=== PATIENT | female | born 1990 | race Caucasian/White ===

== ENCOUNTER 2021-01-17 16:43 | Emergency (ER) | payer OTHER ==
[~2021-01-17] VITALS: Ht 160 cm; Wt 69.0 kg
[~2021-01-17 16:43] MED LIST: ANTIVERT25 MG PO; AZITHROMYCIN 2250 MG PO; CARAFATE 1 GM TA1 G1 PO; CELEXA 20 MG TA20 M1 PO; CELEXA 20 MG TA20 MG PO; CLONAZEPAM 1 MG1 M1 PO; FLAGYL500 MG PO; FLEXERIL PO; HYDROCODON-ACE1 EAC7 PO; IBUPROFEN 400400 M1 PO; IBUPROFEN 800800 M1 PO; LIORESAL 10 MG10 MG PO; MACROBID 100 M100 M2 PO; METROGEL-VAGINA70 GM VG; MINOCYCLINE 5050 M1 PO; MIRENA; NABUMETONE 500500 M1; NORCO 5-325 TA1 EACH PO; NORPRAMIN10 MG PO; NUCYNTA ER50 MG; NUCYNTA50 MG; NUCYNTA75 MG PO; PEPCID AC20 M1 PO; ROBAXIN 750 MG750 M1 PO; TRAZODONE PO; VICODIN 5-5001 EACH PO; VIIBRYD10 MG; WELLBUTRIN XL300 MG PO; XANAX1 MG PO; ZOFRAN ODT4 MG PO
[2021-01-17 17:51] LABS: URINE BILIRUBIN NEGATIVE (Negative); URINE BLOOD NEGATIVE (Negative); URINE CLARITY CLEAR; URINE COLOR YELLOW; URINE GLUCOSE-RANDOM NEGATIVE (Negative); URINE KETONES NEGATIVE (Negative); URINE LEUKOCYTES-REFLEX NEGATIVE (Negative); URINE NITRITE-REFLEX NEGATIVE (Negative); URINE PROTEIN NEGATIVE (Negative); URINE UROBILINOGEN 0.2 E.U./dl (0.2-1.0)
[2021-01-17] MEDS ORDERED: MEDROLDOSEPACK PO (18:07)
[2021-01-17] MEDS ORDERED: FLEXERIL PO (18:07)
[2021-01-17] MEDS ORDERED: NAPROSYN500 MG PO (18:07)
[2021-01-17 18:33] VITALS: BP 137/66
== END 2021-01-17 18:37 | disposition home or self-care (01) ==
LOC: M.ERS 16:43
PROVIDERS: Physician Assistant
DX: M54.59 Other low back pain (principal); J45.909 Unspecified asthma, uncomplicated; F41.9 Anxiety disorder, unspecified; F17.210 Nicotine dependence, cigarettes, uncomplicated; Z88.7 Allergy status to serum and vaccine

== ENCOUNTER 2021-03-12 18:18 | Emergency (ER) | payer OTHER ==
[~2021-03-12] VITALS: Ht 157.5 cm; Wt 74.8 kg
[~2021-03-12 18:18] MED LIST changes: +MEDROLDOSEPACK PO; +NAPROSYN500 MG PO
[2021-03-12] MEDS ORDERED: WELLBUTRIN SR100 MG PO (18:43)
[2021-03-12 20:29] LABS: URINE BILIRUBIN NEGATIVE (Negative); URINE BLOOD NEGATIVE (Negative); URINE COLOR YELLOW; URINE GLUCOSE-RANDOM NEGATIVE (Negative); URINE KETONES NEGATIVE (Negative); URINE LEUKOCYTES 1+ (Negative); URINE NITRITE NEGATIVE (Negative); URINE PROTEIN NEGATIVE (Negative); URINE SPECIFIC GRAVITY 1.015 (1.005-1.030); URINE UROBILINOGEN 0.2 E.U./dl (0.2-1.0)
[2021-03-12 20:30] LABS: URINE CLARITY HAZY
[2021-03-12 20:41] LABS: CASTS None Seen /LPF (None Seen); CRYSTALS None Seen /LPF (None Seen); SQUAMOUS >10 Many /LPF (0-3); URINE RBC None Seen /HPF (0-2); URINE WBC 0-5 Rare /HPF (0-5)
[2021-03-13 02:10] LABS: ABSOLUTE EOSINOPHILS 0.1 thou/uL (0.0-0.7); ABSOLUTE LYMPHOCYTES 1.2 thou/uL (0.8-5.3); ABSOLUTE MONOCYTES 0.8 thou/uL (0.0-1.2); ABSOLUTE NEUTROPHILS 6.9 thou/uL (1.6-8.1); BASOPHILS 0.5 %; EOSINOPHILS 0.6 %; HEMATOCRIT 40.6 % (37.0-47.0); HEMOGLOBIN 13.7 gm/dL (12.0-15.0); LYMPHOCYTES 13.8 %; MCH 29.8 pg (26.0-34.0); MCHC 33.7 g/dL (28.0-37.0); MCV 88.3 fL (80.0-100.0); MONOCYTES 8.5 %; MPV 7.3 fl. (7.2-11.1); NUCLEATED RBCS 0 /100WBC; PLATELET COUNT* 292 thou/uL (150-400); POLYS 76.6 %; RDW-CV 12.8 % (10.5-14.5)
[2021-03-13 02:15] LABS: CALCIUM 8.2 mg/dL (8.5-10.1)
[2021-03-13 02:19] LABS: AMP/METHAMP POSITIVE (Negative); BARBITURATES Negative (Negative); BENZODIAZEPINES Negative (Negative); COCAINE Negative (Negative); METHADONE Negative (Negative); OPIATES Negative (Negative); PCP Negative (Negative); THC POSITIVE (Negative)
[2021-03-13 02:19] LABS: ALBUMIN 3.4 g/dL (3.4-5.0); TOTAL BILIRUBIN 0.2 mg/dL (<0.1-1.0); TOTAL PROTEIN 6.8 g/dL (6.4-8.2)
[2021-03-13] MEDS ORDERED: CIPROFLOXACIN500 M1 PO (04:10)
[2021-03-13] MEDS ORDERED: TORADOL 10 MG T10 MG PO (04:10)
[2021-03-13] MEDS ORDERED: HYDROCODON-ACE1 EAC7 PO (04:10)
[2021-03-13 04:20] VITALS: BP 130/95
[2021-03-13] MEDS ORDERED: LEVOFLOXACIN500 MG PO (04:22)
== END 2021-03-13 04:20 | disposition home or self-care (01) ==
LOC: M.ERS 18:18
PROVIDERS: Personal Emergency Response Attendant; Physician Assistant
DX: N15.9 Renal tubulo-interstitial disease, unspecified (principal); N20.0 Calculus of kidney; R53.1 Weakness; J45.909 Unspecified asthma, uncomplicated; F41.9 Anxiety disorder, unspecified; F17.210 Nicotine dependence, cigarettes, uncomplicated; Z79.899 Other long term (current) drug therapy; Z88.7 Allergy status to serum and vaccine; Z87.442 Personal history of urinary calculi